=== PATIENT | female | born 1970 | race Caucasian/White ===

== ENCOUNTER 2018-03-06 19:01 | Emergency (ER) | payer BC ==
[2018-03-06] MEDS ORDERED: Iopamidol 755 Mg/ML 100 ML Bottle IV ONE (20:22)
[2018-03-06] MEDS ORDERED: Ketorolac 30 MG/ML SDV IVPUSH ONE ×2 (20:23→20:48)
[2018-03-06] MEDS ORDERED: Ondansetron 4 MG/2 ML SDV IVPUSH ONE (20:23)
[2018-03-06] MEDS ORDERED: Ketorolac 60 MG/2 ML SDV IM ONE (20:46)
[2018-03-06] MEDS ORDERED: Sodium Chloride 0.9% 1,000 ML IV ONE (20:49)
[2018-03-06] MEDS ORDERED: Sodium Chloride 0.9% 10 ML Syringe FLUSH PRN (20:51)
[2018-03-06] MEDS ORDERED: Sodium Phosphate,Monobasic/Sodium Phosphate,Dibasic Enema 133 ML Bottle RECTAL ONE (21:51)
--- NOTE | 2018-03-06 22:30 | EDM.PDOC ---
ED HPI GENERAL MEDICAL PROBLEM - General Chief Complaint: Respiratory Problem Stated Complaint: SOB Time Seen by Provider: 03/06/18 19:05 Source of Information: Reports: Patient, Family () - History of Present Illness INITIAL COMMENTS - FREE TEXT/NARRATIVE: 47 y.o.w.f S/P Partial Hysterectomy 3 days ago due precancerous cervix, came to the ED because of SOB, leg swelling and abd. pain. Last BM before surgery, poor apatite. No trauma, No N/V no dizziness, no dysuria, pt does not feel good, called Toney who advised to came to the ed. No other acute medical issues. BP 145/87 RR 22 Temp 36.8 Pulse 98 Pulse ox 100% Onset Date: 03/06/18 Onset Time: 16:00 Duration: Hour(s):, Intermittent Location: Reports: Abdomen Quality: Reports: Ache, Burning, Dull, Pressure Severity: Moderate Improves with: Reports: Medication, Rest Worsens with: Reports: Movement Context: Reports: Other (S/P partial Hysterectomy) Associated Symptoms: Reports: Shortness of Breath stomach Pain Score (Numeric/FACES): 4 - Related Data Allergies Allergy/AdvReac Type Severity Reaction Status Date / Time No Known Allergies Allergy Verified 03/06/18 19:13 Home Meds: Home Meds Ibuprofen [Motrin] 600 mg PO TID PRN #30 tab 02/02/16 [Rx] Hydrocodone/Acetaminophen [Hydrocodon-Acetaminophen 5-325] 1 - 2 tab PO Q4H 06/16 [History] Past Medical History - Past Health History Medical/Surgical History: Denies 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: - Past Surgical History GI Surgical History: Reports: Cholecystectomy Female Surgical History: Reports: Hysterectomy Other Musculoskeletal Surgeries/Procedures:: carpal tunnel surgery Social & Family History - Family History Family Medical History: Noncontributory - Tobacco Use Smoking Status *Q: Never Smoker Years of Tobacco use: 20 Packs/Tins Daily: 1 Second Hand Smoke Exposure: Yes - Caffeine Use Caffeine Use: Reports: Soda - Recreational Drug Use Recreational Drug Use: No ED ROS GENERAL - Review of Systems Review Of Systems: See Below Constitutional: Reports: Decreased Appetite HEENT: Reports: No Symptoms Respiratory: Reports: No Symptoms Cardiovascular: Reports: No Symptoms Endocrine: Reports: No Symptoms GI/Abdominal: Reports: Abdominal Pain, Constipation : Reports: No Symptoms Musculoskeletal: Reports: No Symptoms Skin: Reports: Wound (surgical wounds) Neurological: Reports: No Symptoms Psychiatric: Reports: No Symptoms Hematologic/Lymphatic: Reports: No Symptoms Immunologic: Reports: No Symptoms ED EXAM, GENERAL - Physical Exam Exam: See Below Exam Limited By: No Limitations General Appearance: Alert, WD/WN Eye Exam: Bilateral Eye: Normal Inspection Ears: Normal External Exam Ear Exam: Bilateral Ear: Auricle Normal Nose: Normal Inspection Throat/Mouth: Normal Inspection, Normal Lips, No Airway Compromise Head: Atraumatic, Normocephalic Neck: Normal Inspection, Supple, Non-Tender, Full Range of Motion Respiratory/Chest: No Respiratory Distress, Lungs Clear, Normal Breath Sounds, Chest Non-Tender Cardiovascular: Normal Peripheral Pulses, Regular Rate, Rhythm, No Edema, No JVD , No Murmur Peripheral Pulses: 1+: Brachial (L) GI/Abdominal: Normal Bowel Sounds, Tender (generalized) (Female) Exam: Deferred Rectal (Female) Exam: Deferred Back Exam: Normal Inspection Extremities: Normal Inspection, Normal Range of Motion, Non-Tender, Normal Capillary Refill, Pedal Edema (nonpitting) Neurological: Alert, Oriented, CN II-XII Intact, Normal Cognition, Normal Gait Psychiatric: Normal Affect, Normal Mood Skin Exam: Warm, Dry, Intact, Normal Color, No Rash Lymphatic: No Adenopathy Course - Vital Signs Text/Narrative:: 47 y.o.w.f S/P Partial Hysterectomy 3 days ago due precancerous cervix, came to the ED because of SOB, leg swelling and abd. pain. Last BM before surgery, poor apatite. No trauma, No N/V no dizziness, no dysuria, pt does not feel good, called Toney who advised to came to the ed. No other acute medical issues. BP 145/87 RR 22 Temp 36.8 Pulse 98 Pulse ox 100% PE: WNWD W F obese with SOB and abd. pain s/p Part hysterectomy Labs: D Dimer > 707 UA: Stu hematuria Imaging: PE run neg. Abd: Neg for Kidney stones, Abd. Flat/upright: Constipation Impression: S/P partial Hysterectomy, abd, wall pain due to surgical wounds, elevated D Dimer, constipation, dehydration, bilateral non pitting edema ( lymphedema lower extremity) Tx: Fleets enema, MG citrate, Toradol Reexam: Improved, pain improved, pt passed stool Plan: D/C with instructions Last Recorded V/S: Last Vital Signs Temp 36.3 C 03/06/18 22:47 Pulse 63 03/06/18 22:47 Resp 18 03/06/18 22:47 BP 120/58 L 03/06/18 22:47 Pulse Ox 100 03/06/18 22:47 - Orders/Labs/Meds Orders: Active Orders 24 hr Category Date Time Status Abdomen 2V AP Flat Upright [CR] Stat Exams 03/06/18 19:23 Taken Abdomen Pelvis wo Cont [CT] Stat Exams 03/06/18 20:20 Taken Ang Chest [CT] Stat Exams 03/06/18 20:20 Taken UA W/MICROSCOPIC [URIN] Stat Lab 03/06/18 19:35 Ordered Saline Lock Insert [OM.PC] Routine Oth 03/06/18 20:51 Ordered Labs: Laboratory Tests 03/06/18 03/06/18 03/06/18 Range/Units 19:35 19:40 19:40 WBC 11.7 (4.5-12.0) X10-3/uL RBC 4.08 (3.23-5.20) x10(6)uL Hgb 12.2 (11.5-15.5) g/dL Hct 37.1 (30.0-51.3) % MCV 90.9 (80-96) fL MCH 30.0 (27.7-33.6) pg MCHC 33.0 (32.2-35.4) g/dL RDW 12.2 (11.5-15.5) % Plt Count 117 L (125-369) X10(3)uL MPV 9.2 (7.4-10.4) fL Neut % (Auto) 57.3 (46-82) % Lymph % (Auto) 30.0 (13-37) % [place] % (Auto) 7.0 (4-12) % Eos % (Auto) 2 (1.0-5.0) % Baso % (Auto) 4 H (0-2) % Neut # (Auto) 6.8 (1.6-8.3) # Lymph # (Auto) 3.5 (0.6-5.0) # [place] # (Auto) 0.8 (0.0-1.3) # Eos # (Auto) 0.2 (0.0-0.8) # Baso # (Auto) 0.4 H (0.0-0.2) # D-Dimer, Quantitative 798 H (100-400) ng/mL Sodium (135-145) mmol/L Potassium (3.5-5.3) mmol/L Chloride (100-110) mmol/L Carbon Dioxide (21-32) mmol/L BUN (7-18) mg/dL Creatinine (0.55-1.02) mg/dL Est Cr Clr Drug Dosing mL/min Estimated GFR (MDRD) (>60) BUN/Creatinine Ratio (9-20) Glucose (80-116) mg/dL Lactic Acid (0.4-2.2) mmol/L Calcium (8.6-10.2) mg/dL NT-Pro-B Natriuret Pep (<=125) pg/mL Urine Color Yellow (YELLOW) Urine Appearance Clear (CLEAR) Urine pH 5.0 (5.0-6.5) Ur Specific [place] 1.020 (1.010-1.025) Urine Protein Negative (NEGATIVE) mg/dL Urine Glucose (UA) Normal (NEGATIVE) mg/dL Urine Ketones Negative (NEGATIVE) mg/dL Urine Occult Blood Large H (NEGATIVE) Urine Nitrite Negative (NEGATIVE) Urine Bilirubin Negative (NEGATIVE) Urine Urobilinogen Normal (NEGATIVE) mg/dL Ur Leukocyte Esterase Negative (NEGATIVE) Urine RBC 20-30 H (0) Urine WBC 0-5 (0) Ur Squamous Epith Cells Moderate H (NS,R,O) Urine Bacteria Moderate H (NS) 03/06/18 03/06/18 03/06/18 Range/Units 19:40 19:40 19:40 WBC (4.5-12.0) X10-3/uL RBC (3.23-5.20) x10(6)uL Hgb (11.5-15.5) g/dL Hct (30.0-51.3) % MCV (80-96) fL MCH (27.7-33.6) pg MCHC (32.2-35.4) g/dL RDW (11.5-15.5) % Plt Count (125-369) X10(3)uL MPV (7.4-10.4) fL Neut % (Auto) (46-82) % Lymph % (Auto) (13-37) % [place] % (Auto) (4-12) % Eos % (Auto) (1.0-5.0) % Baso % (Auto) (0-2) % Neut # (Auto) (1.6-8.3) # Lymph # (Auto) (0.6-5.0) # Chase # (Auto) (0.0-1.3) # Eos # (Auto) (0.0-0.8) # Baso # (Auto) (0.0-0.2) # D-Dimer, Quantitative (100-400) ng/mL Sodium 140 (135-145) mmol/L Potassium 3.7 (3.5-5.3) mmol/L Chloride 104 (100-110) mmol/L Carbon Dioxide 27 (21-32) mmol/L BUN 16 (7-18) mg/dL Creatinine 0.9 (0.55-1.02) mg/dL Est Cr Clr Drug Dosing 73.90 mL/min Estimated GFR (MDRD) > 60 (>60) BUN/Creatinine Ratio 17.8 (9-20) Glucose 91 (80-116) mg/dL Lactic Acid 1.0 (0.4-2.2) mmol/L Calcium 9.0 (8.6-10.2) mg/dL NT-Pro-B Natriuret Pep 415 H (<=125) pg/mL Urine Color (YELLOW) Urine Appearance (CLEAR) Urine pH (5.0-6.5) Ur Specific [place] (1.010-1.025) Urine Protein (NEGATIVE) mg/dL Urine Glucose (UA) (NEGATIVE) mg/dL Urine Ketones (NEGATIVE) mg/dL Urine Occult Blood (NEGATIVE) Urine Nitrite (NEGATIVE) Urine Bilirubin (NEGATIVE) Urine Urobilinogen (NEGATIVE) mg/dL Ur Leukocyte Esterase (NEGATIVE) Urine RBC (0) Urine WBC (0) Ur Squamous Epith Cells (NS,R,O) Urine Bacteria (NS) Meds: Medications Discontinued Medications Generic Name Dose Route Start Last Admin Trade Name Freq PRN Reason Stop Dose Admin Sodium Chloride 1,000 mls @ 999 mls/hr 03/06/18 20:49 03/06/18 21:19 Normal Saline IV 03/06/18 21:49 999 mls/hr .BOLUS ONE Administration Iopamidol 100 ml 03/06/18 20:22 03/06/18 21:08 Isovue-370 (76%) IV 03/06/18 20:23 100 ml . DIRECTED ONE Administration Ketorolac Tromethamine 30 mg 03/06/18 20:23 03/06/18 20:50 Toradol IVPUSH 03/06/18 20:24 Not Given ONETIME ONE Ketorolac Tromethamine 60 mg 03/06/18 20:46 03/06/18 20:49 Toradol IM 03/06/18 20:47 Not Given ONETIME ONE Ketorolac Tromethamine 30 mg 03/06/18 20:48 03/06/18 20:54 Toradol IVPUSH 03/06/18 20:49 30 mg ONETIME ONE Administration Magnesium Citrate 296 ml 03/06/18 22:46 03/06/18 22:49 Citrate Of Magnesia PO 03/06/18 22:47 Not Given ONETIME ONE Ondansetron HCl 8 mg 03/06/18 20:23 03/06/18 20:56 Zofran IVPUSH 03/06/18 20:24 8 mg ONETIME ONE Administration Sodium Biphosphate/Sodium Phosphate 133 ml 03/06/18 21:51 03/06/18 22:08 Fleet Enema RECTAL 03/06/18 21:52 133 ml ONETIME ONE Administration Sodium Chloride 10 ml 03/06/18 20:51 03/06/18 20:52 Saline Flush FLUSH 10 ml ASDIRECTED PRN Administration Keep Vein Open Departure - Departure Time of Disposition: 22:35 Disposition: Home, Self-Care 01 Condition: Good Clinical Impression: Constipation by delayed colonic transit, Dehydration, S/P partial hysterectomy , Lymphedema Abdominal pain Qualifiers: Abdominal location: generalized Qualified Code(s): R10.84 - Generalized abdominal pain - Discharge Information Instructions: Constipation, Adult, [id number], Dehydration, Adult, Easy-to- Read, Abdominal Pain, Adult, [id number], Magnesium Citrate oral solution Referrals: Buck Childs MD [Primary Care Provider] - Forms: ED Department Discharge Additional Instructions: Please elevate both legs above, take MG citrate, increase water intake, oatmeal daily. Please f/u, come back if your symptoms get worse acutely. - My Orders Last 24 Hours: My Active Orders 03/06/18 19:23 Abdomen 2V AP Flat Upright [CR] Stat 03/06/18 19:35 UA W/MICROSCOPIC [URIN] Stat 03/06/18 20:20 Abdomen Pelvis wo Cont [CT] Stat Ang Chest [CT] Stat 03/06/18 20:51 Saline Lock Insert [OM.PC] Routine - Assessment/Plan Last 24 Hours: My Active Orders 03/06/18 19:23 Abdomen 2V AP Flat Upright [CR] Stat 03/06/18 19:35 UA W/MICROSCOPIC [URIN] Stat 03/06/18 20:20 Abdomen Pelvis wo Cont [CT] Stat Ang Chest [CT] Stat 03/06/18 20:51 Saline Lock Insert [OM.PC] Routine
[2018-03-06] MEDS ORDERED: Magnesium Citrate Solution 296 ML Bottle PO ONE (22:46)
[2018-03-06 22:47] VITALS: BP 120/58
--- NOTE | 2018-03-08 11:46 | CR ---
INDICATION: Pain, abdominal distention, 2-3 days post hysterectomy. No BM x2- 3 days. ABDOMEN: Four images of the abdomen were obtained in supine and upright projections 03/06/2018. No comparisons were available. Evidence of previous cholecystectomy is noted. The pattern of gas and feces is nonspecific without evidence of free air or obstruction. No organomegaly, mass lesions, or pathologic calcifications were suggested. IMPRESSION: Nonacute abdomen. MTDD
== END 2018-03-06 22:52 | disposition home or self-care (01) ==
LOC: FB.ED 19:01
DX: K59.01 Slow transit constipation (principal); E86.0 Dehydration; G89.18 Other acute postprocedural pain; R10.84 Generalized abdominal pain; I89.0 Lymphedema, not elsewhere classified; R79.1 Abnormal coagulation profile; Z77.22 Contact with and (suspected) exposure to environmental tobacco smoke (acute) (chronic); Z90.711 Acquired absence of uterus with remaining cervical stump
CPT/HCPCS: 36415; 71275; 74019; 74176; 80048; 81001; 83605; 83880; 85025; 85379; 96361; 96374; 99285; A9270; J1885; J2405; J7040; J7050; Q9967; J7030

== ENCOUNTER 2021-01-01 22:54 | Emergency (ER) | payer BC ==
[2021-01-01] MEDS ORDERED: amLODIPine 10 MG Tab PO STA (23:14)
[2021-01-01] MEDS ORDERED: Aspirin 81 MG Tab.Chew PO STA (23:15)
--- NOTE | 2021-01-01 23:45 | EDM.PDOC ---
ED HPI GENERAL MEDICAL PROBLEM - General Chief Complaint: General Stated Complaint: high blood pressure Time Seen by Provider: 01/01/21 23:35 Source of Information: Reports: Patient History Limitations: Reports: No Limitations - History of Present Illness INITIAL COMMENTS - FREE TEXT/NARRATIVE: Patient presented to the ED because of chest tightness and headache. Denies any N/V, fever/chills or dyspnea. She then took her BP and was elevated. 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: - Past Surgical History GI Surgical History: Reports: Cholecystectomy Female Surgical History: Reports: Hysterectomy Other Musculoskeletal Surgeries/Procedures:: carpal tunnel surgery Social & Family History - Family History Family Medical History: No Pertinent Family History - Caffeine Use Caffeine Use: Reports: Soda ED ROS GENERAL - Review of Systems Review Of Systems: See Below Constitutional: Reports: No Symptoms HEENT: Reports: No Symptoms Respiratory: Reports: No Symptoms Cardiovascular: Reports: Chest Pain Endocrine: Reports: No Symptoms GI/Abdominal: Reports: No Symptoms : Reports: No Symptoms Musculoskeletal: Reports: No Symptoms Skin: Reports: No Symptoms Neurological: Reports: Headache ED EXAM, GENERAL - Physical Exam Exam: See Below Exam Limited By: No Limitations General Appearance: Alert, No Apparent Distress Eye Exam: Bilateral Eye: PERRL Ears: Normal External Exam, Normal Canal Nose: Normal Inspection, Normal Mucosa Throat/Mouth: Normal Inspection, Normal Lips, Normal Teeth Head: Atraumatic, Normocephalic Neck: Normal Inspection, Supple, Non-Tender, Full Range of Motion Respiratory/Chest: No Respiratory Distress, Lungs Clear, Normal Breath Sounds Cardiovascular: Normal Peripheral Pulses, Regular Rate, Rhythm, No Edema, No Gallop GI/Abdominal: Normal Bowel Sounds, Soft, Non-Tender Back Exam: Normal Inspection, Full Range of Motion Extremities: Normal Inspection, Normal Range of Motion, Non-Tender Neurological: Alert, Oriented, CN II-XII Intact, Normal Cognition, Normal Gait, Normal Reflexes, No Motor/Sensory Deficits Psychiatric: Normal Affect Course - Vital Signs Text/Narrative:: Labs/EKG was discussed with patient EKG-NSR Trop-nwg Norvasc 10 mg po x1 Last Recorded V/S: Last Vital Signs Temp Pulse Resp BP 149/81 H 01/01/21 23:39 Pulse Ox - Orders/Labs/Meds Orders: Active Orders 24 hr Category Date Time Status EKG Documentation Completion [RC] ASDIRECTED Care 01/01/21 23:15 Active TROPONIN I [CHEM] Stat Lab 01/01/21 23:14 Ordered EKG 12 Lead [EK] Routine Ther 01/01/21 23:14 Ordered Labs: Laboratory Tests 01/01/21 01/01/21 Range/Units 23:28 23:28 WBC 7.8 (3.0-10.3) x10-3/uL RBC 4.63 (3.60-5.20) x10(6)uL Hgb 13.6 (11.4-15.5) g/dL Hct 42.0 (34.2-48.2) % MCV 90.7 (76.7-100.5) fL MCH 29.3 (23.9-33.9) pg MCHC 32.3 (31.9-34.8) g/dL RDW 12.3 (12.3-16.5) % Plt Count 253 (151-488) x10(3)uL MPV 8.9 (7.1-12.4) fL Neut % (Auto) 54.8 (30.8-76.2) % Lymph % (Auto) 31.1 (18.4-52.1) % [place] % (Auto) 8.9 (4.4-15.7) % Eos % (Auto) 4.7 (0.6-8.1) % Baso % (Auto) 0.5 (0.2-1.5) % Neut # (Auto) 4.2 (1.5-6.3) x10-3/uL Lymph # (Auto) 2.4 (1.0-4.4) x10-3/uL [place] # (Auto) 0.7 (0.3-1.0) x10-3/uL Eos # (Auto) 0.4 (0.0-0.8) x10-3/uL Baso # (Auto) 0.0 (0.0-0.1) x10-3/uL Sodium 142 (135-145) mmol/L Potassium 4.2 (3.5-5.3) mmol/L Chloride 104 (100-110) mmol/L Carbon Dioxide 31 (21-32) mmol/L BUN 22 H (7-18) mg/dL Creatinine 0.9 (0.55-1.02) mg/dL Est Cr Clr Drug Dosing TNP Estimated GFR (MDRD) > 60 (>60) BUN/Creatinine Ratio 24.4 H (9-20) Glucose 121 H (80-116) mg/dL Calcium 9.4 (8.6-10.2) mg/dL Meds: Medications Discontinued Medications Generic Name Dose Route Start Last Admin Trade Name Freq PRN Reason Stop Dose Admin Amlodipine Besylate 10 mg 01/01/21 23:14 01/01/21 23:39 Norvasc PO 01/01/21 23:15 10 mg NOW STA Administration Aspirin 324 mg 01/01/21 23:15 01/01/21 23:33 Aspirin PO 01/01/21 23:16 324 mg NOW STA Administration Departure - Departure Time of Disposition: 12:30 Disposition: Home, Self-Care 01 Condition: Good Clinical Impression: Hypertension, Headache - Discharge Information Instructions: General Headache Without Cause, Hypertension, Adult, [id number] Referrals: Buck Childs MD [Primary Care Provider] - Forms: ED Department Discharge Additional Instructions: Please read discharge instructions on Hypertension and Headache Low salt,low fat diet Exercise regularly Follow up with your doctor to recheck your BP Sepsis Event Note (ED) - Focused Exam Vital Signs: Vital Signs BP 01/01/21 23:39 149/81 H - My Orders Last 24 Hours: My Active Orders 01/01/21 23:14 TROPONIN I [CHEM] Stat EKG 12 Lead [EK] Routine 01/01/21 23:15 EKG Documentation Completion [RC] ASDIRECTED - Assessment/Plan Last 24 Hours: My Active Orders 01/01/21 23:14 TROPONIN I [CHEM] Stat EKG 12 Lead [EK] Routine 01/01/21 23:15 EKG Documentation Completion [RC] ASDIRECTED
[2021-01-02 01:21] VITALS: BP 155/89; PULSE 70
== END 2021-01-02 00:40 | disposition home or self-care (01) ==
LOC: FB.ED 22:54
DX: I10 Essential (primary) hypertension (principal); R07.89 Other chest pain
CPT/HCPCS: 36415; 80048; 84484; 85025; 93005; 99285; A9270; 99283

== ENCOUNTER 2021-01-03 16:08 | Emergency (ER) | payer BC ==
[2021-01-03] MEDS ORDERED: Aspirin 81 MG Tab.Chew PO ONE (16:17)
[2021-01-03] MEDS ORDERED: Nitroglycerin 0.4 MG Tab.SL SL PRN (16:18)
[2021-01-03 16:55] VITALS: BP 159/76
[2021-01-03 17:02] VITALS: PULSE 79
--- NOTE | 2021-01-03 17:24 | EDM.PDOC ---
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, after work she went to walk-in where EKG showed bigeminy, pt sent to ED for further evaluation not orthostatic here CP resolved completely after NTG SL x 1 does have mild inc'd CRP 1.7 today, no comparison gets weekly COVID testing at [employer], has had multiple tests done, last test neg 3d ago smokes 10-14 cig/d has had a bifrontal MILLER x 2w, not gotten better, take Aleve/ibuprofen/APAP at home at various times without relief trop and BNP neg today, trop neg 2d ago chest Pain Score (Numeric/FACES): 5 - Related Data Allergies Allergy/AdvReac Type Severity Reaction Status Date / Time No Known Allergies Allergy Verified 01/01/21 23:05 Home Meds: Home Meds Acetaminophen [Tylenol Extra Strength] 1 tab PO Q8H 01/01/21 [History] Past Medical History - Past Health History Medical/Surgical History: Denies Medical/Surgical History [facility] History: Reports: - Infectious Disease History Infectious Disease History: Reports: Chicken Pox - Past Surgical History GI Surgical History: Reports: Cholecystectomy Female Surgical History: Reports: Hysterectomy Other Musculoskeletal Surgeries/Procedures:: carpal tunnel surgery Social & Family History - Family History Family Medical History: No Pertinent Family History - Tobacco Use Tobacco Use Status *Q: Current Every Day Tobacco User Years of Tobacco use: 28 Packs/Tins Daily: 1 Used Tobacco, but Quit: No Second Hand Smoke Exposure: No - Caffeine Use Caffeine Use: Reports: Soda - Recreational Drug Use Recreational Drug Use: No ED ROS GENERAL - Review of Systems Review Of Systems: See Below Constitutional: Reports: No Symptoms HEENT: Reports: No Symptoms Respiratory: Reports: No Symptoms Cardiovascular: Reports: Chest Pain Endocrine: Reports: No Symptoms GI/Abdominal: Reports: No Symptoms : Reports: No Symptoms Musculoskeletal: Reports: No Symptoms Skin: Reports: No Symptoms Neurological: Reports: Headache, Other (lightheaded) Psychiatric: Reports: No Symptoms Hematologic/Lymphatic: Reports: No Symptoms Immunologic: Reports: No Symptoms ED EXAM, GENERAL - Physical Exam Exam: See Below Exam Limited By: No Limitations General Appearance: Alert, WD/WN, No Apparent Distress Ears: Hearing Grossly Normal Nose: Normal Inspection, Normal Mucosa, No Blood Throat/Mouth: Normal Inspection, Normal Lips, Normal Teeth, Normal Gums, Normal Oropharynx, Normal Voice, No Airway Compromise Head: Atraumatic, Normocephalic Neck: Normal Inspection, Supple, Non-Tender, Full Range of Motion. No: Lymph adenopathy (R), Lymphadenopathy (L) Respiratory/Chest: No Respiratory Distress, Lungs Clear, Normal Breath Sounds, No Accessory Muscle Use Cardiovascular: Regular Rate, Rhythm, No Edema, No Gallop, No JVD, No Murmur, No Rub Peripheral Pulses: 4+: Dorsalis Pedis (R) GI/Abdominal: Soft, Non-Tender, No Organomegaly, No Distention, No Mass Back Exam: Normal Inspection, Full Range of Motion Extremities: Normal Inspection, Normal Range of Motion, Non-Tender, No Pedal Edema Neurological: Alert, Oriented, CN II-XII Intact, Normal Cognition, No Motor/Sensory Deficits Psychiatric: Normal Affect, Normal Mood Skin Exam: Warm, Dry, Intact, Normal Color, No Rash Lymphatic: No Adenopathy Course - Vital Signs Last Recorded V/S: Last Vital Signs Temp 36.3 C 01/03/21 16:15 Pulse 79 01/03/21 16:15 Resp 18 01/03/21 16:15 BP 159/76 H 01/03/21 16:32 Pulse Ox 98 01/03/21 16:15 - Orders/Labs/Meds Orders: Active Orders 24 hr Category Date Time Status EKG Documentation Completion [RC] ASDIRECTED Care 01/03/21 17:24 Active Orthostatic Vital Signs [RC] ASDIRECTED Care 01/03/21 17:11 Active Chest 2V [CR] Stat Exams 01/03/21 17:10 Taken Nitroglycerin [Nitrostat] Med 01/03/21 16:18 Active 0.4 mg SL Q5M PRN EKG 12 Lead [EK] Routine Ther 01/03/21 17:24 Ordered Medication Orders Nitroglycerin (Nitrostat) 0.4 mg SL Q5M PRN PRN Reason: Chest Pain Last Admin: 01/03/21 16:32 Dose: 0.4 mg Documented by: [email or web address] Labs: Laboratory Tests 01/03/21 01/03/21 01/03/21 Range/Units 16:28 16:28 16:28 PT 10.3 (9.0-11.1) sec INR 0.95 L (1.00-1.24) D-Dimer, Quantitative 0.34 (0.0-0.59) mg/LFEU C-Reactive Protein 1.7 H (0.5-0.9) mg/dL NT-Pro-B Natriuret Pep 34 (<=125) pg/mL Urine Color (YELLOW) Urine Appearance (CLEAR) Urine pH (5.0-6.5) Ur Specific [place] (1.010-1.025) Urine Protein (NEGATIVE) mg/dL Urine Glucose (UA) (NORMAL) mg/dL Urine Ketones (NEGATIVE) mg/dL Urine Occult Blood (NEGATIVE) Urine Nitrite (NEGATIVE) Urine Bilirubin (NEGATIVE) Urine Urobilinogen (NEGATIVE) mg/dL Ur Leukocyte Esterase (NEGATIVE) Urine RBC (0-5) Urine WBC (0-5) Ur Squamous Epith Cells (NS,R,O) Urine Bacteria (NS) 01/03/21 Range/Units 17:35 PT (9.0-11.1) sec INR (1.00-1.24) D-Dimer, Quantitative (0.0-0.59) mg/LFEU C-Reactive Protein (0.5-0.9) mg/dL NT-Pro-B Natriuret Pep (<=125) pg/mL Urine Color Yellow (YELLOW) Urine Appearance Clear (CLEAR) Urine pH 7.0 H (5.0-6.5) Ur Specific [place] 1.015 (1.010-1.025) Urine Protein Trace (NEGATIVE) mg/dL Urine Glucose (UA) Normal (NORMAL) mg/dL Urine Ketones Negative (NEGATIVE) mg/dL Urine Occult Blood Negative (NEGATIVE) Urine Nitrite Negative (NEGATIVE) Urine Bilirubin Negative (NEGATIVE) Urine Urobilinogen Normal (NEGATIVE) mg/dL Ur Leukocyte Esterase Negative (NEGATIVE) Urine RBC Not seen (0-5) Urine WBC 0-5 (0-5) Ur Squamous Epith Cells Few H (NS,R,O) Urine Bacteria Rare H (NS) Meds: Medications Generic Name Dose Route Start Last Admin Trade Name Freq PRN Reason Stop Dose Admin Nitroglycerin 0.4 mg 01/03/21 16:18 01/03/21 16:32 Nitrostat SL 0.4 mg Q5M PRN Administration Chest Pain Discontinued Medications Generic Name Dose Route Start Last Admin Trade Name Freq PRN Reason Stop Dose Admin Aspirin 324 mg 01/03/21 16:17 01/03/21 16:30 Aspirin PO 01/03/21 16:18 324 mg ONETIME ONE Administration - Re-Assessments/Exams Free Text/Narrative Re-Assessment/Exam: 01/03/21 18:32 labs reviewed, father from [facility] [place] age 68, smoker, mother with HTN, no known CAD GM with GA positive response to SL NTG concerning no open beds here, transfer to [facility] discussed, pt in agreement, call placed 01/03/21 18:45 d/w Dr Wallis hospitalist at [facility] who accepted pt in transfer, pt stable and free of CP after one NTG, Dr Wallis was going to try to arrange a stress test in AM pt in agreement with transfer Departure - Departure Time of Disposition: 18:48 Disposition: DC/Tfer to Other Reason for Transfer *Q: Other Condition: Fair Clinical Impression: Chest pain, rule out acute myocardial infarction, Bigeminy, Chronic headache, Elevated C-reactive protein (CRP), Current smoker, Lightheaded, Prerenal azotemia, Family history of coronary artery disease in father Referrals: Buck Childs MD [Primary Care Provider] - Forms: ED Department Discharge Sepsis Event Note (ED) - Evaluation Sepsis Screening Result: No Definite Risk - Focused Exam Vital Signs: Vital Signs Temp Pulse Resp BP BP Pulse Ox 01/03/21 16:32 159/76 H 01/03/21 16:15 36.3 C 79 18 159/76 H 98 - My Orders Last 24 Hours: My Active Orders 01/03/21 16:18 Nitroglycerin [Nitrostat] 0.4 mg SL Q5M PRN 01/03/21 17:10 Chest 2V [CR] Stat 01/03/21 17:11 Orthostatic Vital Signs [RC] ASDIRECTED 01/03/21 17:24 EKG Documentation Completion [RC] ASDIRECTED EKG 12 Lead [EK] Routine - Assessment/Plan Last 24 Hours: My Active Orders 01/03/21 16:18 Nitroglycerin [Nitrostat] 0.4 mg SL Q5M PRN 01/03/21 17:10 Chest 2V [CR] Stat 01/03/21 17:11 Orthostatic Vital Signs [RC] ASDIRECTED 01/03/21 17:24 EKG Documentation Completion [RC] ASDIRECTED EKG 12 Lead [EK] Routine
--- NOTE | 2021-01-03 18:50 | CR ---
CHEST TWO VIEWS INDICATION: Substernal chest pain resolved with nitroglycerin x1. PA and lateral views of the chest were compared with 02/02/2016 and reveal the heart to remain normal in size and shape. A moderate dextroconvex scoliosis of the thoracic spine is again noted with mild hypertrophic degenerative changes. Mediastinum was unremarkable. Overlying EKG leads are noted. Pulmonary markings are similar to the previous study, without a definite active infiltrate or effusion. IMPRESSION: No acute process. MTDD
== END 2021-01-03 21:27 | disposition other institution (70) ==
LOC: FB.ED 16:08
DX: R07.9 Chest pain, unspecified (principal); R00.8 Other abnormalities of heart beat; R51.9 Headache, unspecified; R79.89 Other specified abnormal findings of blood chemistry; F17.200 Nicotine dependence, unspecified, uncomplicated; R42 Dizziness and giddiness; Z82.49 Family history of ischemic heart disease and other diseases of the circulatory system
CPT/HCPCS: 36415; 71046; 81001; 83880; 85379; 85610; 86140; 93005; 99285; A9270

== ENCOUNTER 2023-10-15 06:12 | Day surgery (SDC) | payer BC ==
[2023-10-15] MEDS ORDERED: Propofol 200 MG/20 ML SDV IV ONE (06:13)
[2023-10-15] MEDS ORDERED: Lidocaine 2% 5 ML SDV IV ONE (06:13)
[2023-10-15] MEDS ORDERED: Sodium Chloride 0.9% 10 ML Syringe FLUSH PRN (06:15)
[2023-10-15] MEDS ORDERED: Lactated Ringers 1,000 ML IV SCH (06:15)
[2023-10-15 08:51] VITALS: BP 146/81; PULSE 63
== END 2023-10-15 08:49 | disposition home or self-care (01) ==
LOC: FB.SDS 06:12
PROVIDERS: ATTEND Surgery
DX: Z12.11 Encounter for screening for malignant neoplasm of colon (principal); K63.5 Polyp of colon; E78.00 Pure hypercholesterolemia, unspecified; E66.9 Obesity, unspecified; Z68.39 Body mass index [BMI] 39.0-39.9, adult; Z90.49 Acquired absence of other specified parts of digestive tract; Z87.891 Personal history of nicotine dependence; Z79.82 Long term (current) use of aspirin; Z79.899 Other long term (current) drug therapy
CPT/HCPCS: 00811; 45384; 88305; J2704; J7120